=== PATIENT | male | born 1950 | race Caucasian/White ===

== ENCOUNTER 2021-08-30 12:57 | Emergency (ER) | payer MEDICARE, OTHER ==
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
[2021-08-30] MEDS ORDERED: Dextrose 5%-0.9% NaCl 1,000 ML IV SCH (13:30)
--- NOTE | 2021-08-30 13:51 | CR ---
Chest: Frontal view of the chest was obtained. Comparison: No prior chest imaging is available. Heart size is normal. Slight tortuosity of the thoracic aorta is seen. Lungs are clear with no acute parenchymal change. Old healed right clavicle fracture is seen. Degenerative change is noted within both acromioclavicular joints. Slight scoliosis is noted within the spine. Impression: 1. Findings as noted above. 2. Nothing acute is seen on frontal chest x-ray. Diagnostic code #2
[2021-08-30 15:31] VITALS: BP 106/59; PULSE 70
== END 2021-08-30 15:45 ==
LOC: JD.ED 12:57
DX: R40.4 Transient alteration of awareness (principal); J43.9 Emphysema, unspecified; K21.9 Gastro-esophageal reflux disease without esophagitis; Z79.899 Other long term (current) drug therapy
CPT/HCPCS: 36415; 71045; 80053; 81001; 83605; 83615; 83735; 83880; 84484; 85025; 85610; 85730; 86140; 99285; J7042